=== PATIENT | male | born 2005 | race African-American/Black ===

== ENCOUNTER 2024-09-01 11:08 | Emergency (ER) | payer SELFPAY ==
[~2024-09-01] VITALS: Ht 185.4 cm; Wt 68.0 kg
[2024-09-01 11:12] VITALS: O2SAT 100
[2024-09-01 11:20] VITALS: BP 131/90; PULSE 51; RESP 18; TEMP 98.1; O2SAT 100
[2024-09-01 12:13] LABS: BASOPHILS % 0.5 % (0.0-2.0); EOSINOPHILS % 1.4 % (0.0-5.0); HEMATOCRIT. 43.3 % (42.0-52.0); HEMOGLOBIN. 13.6 g/dL (14.0-18.0); LYMPHOCYTES % 26.7 % (20.0-50.0); MEAN CORPUSCULAR HEMOGLOBIN 27.1 pg (28.0-32.0); MEAN CORPUSCULAR HGB CONC 31.3 g/dL (31.0-37.0); MEAN CORPUSCULAR VOLUME 86.6 fL (80.0-94.0); MEAN PLATELET VOLUME 8.5 fl (7.4-10.4); MONOCYTES % 7.1 % (2.0-8.0); NEUTROPHILS % 64.3 % (40.0-76.0); PLATELET 224 x1000/uL (130-400); WHITE BLOOD COUNT 5.8 x1000/uL (4.5-11.0)
[2024-09-01 12:28] LABS: PROTHROMBIN TIME 11.1 sec (9.6-11.0)
[2024-09-01 12:30] LABS: CHLORIDE 110 mEq/L (98-107); POTASSIUM 4.6 mEq/L (3.5-5.1); SODIUM 143 mEq/L (136-145)
[2024-09-01 12:32] LABS: CALCIUM 9.7 mg/dL (8.7-10.4); CARBON DIOXIDE 28 mEq/L (21-32)
[2024-09-01 12:37] LABS: CREATININE 1.1 mg/dL (0.6-1.3); GLUCOSE 88 mg/dL (70-105); UREA NITROGEN BLOOD 9 mg/dL (9-23)
[2024-09-01 12:39] LABS: ALANINE AMINOTRANSFERASE < 7 IU/L (10-49); ALBUMIN 4.5 g/dL (3.2-4.8); ASPARTATE AMINOTRANSFERASE 14 IU/L (<34); BILIRUBIN DIRECT 0.1 mg/dL (<=3.0); BILIRUBIN TOTAL 0.4 mg/dL (0.1-1.0); PROTEIN TOTAL 7.2 g/dL (6.0-8.3)
[2024-09-01 12:52] LABS: TROPONIN I HIGH SENSITIVITY < 4 ng/L (3.0-53)
[2024-09-01] MEDS ORDERED: HYDR453.3 TP (13:52)
== END 2024-09-01 15:12 | disposition home or self-care (01) ==
LOC: ER 11:08
DX: K62.5 Hemorrhage of anus and rectum (principal); R11.2 Nausea with vomiting, unspecified; R53.83 Other fatigue
CPT/HCPCS: 36415; 71045; 80048; 80076; 84484; 85025; 86850; 86900; 99284